=== PATIENT | male | born 1960 | race African-American/Black ===

== ENCOUNTER → 2020-06-03 | Outpatient (CLI) | payer BC, OTHER ==
[2014-12-21 15:20] VITALS: BP 149/99
[~2020-06-03] MED LIST: AMLO10TA4 PO; BARIUM SULFATE 40% (APPLE) 148 GM PWD. PO ONE; DOXA2TAB2 PO; Metoprolol Tartrate PO; POTA20TA4 PO; RANI150T2 PO; TAMS0.4C2 PO
--- NOTE | 2020-06-03 18:11 | RAD ---
EXAMINATION: DG VIDEO SWALLOW STUDY 06/03/2020 10:05 AM HISTORY: Aspiration, voice changes COMPARISON: None TECHNIQUE: The patient was observed swallowing various consistencies of barium under intermittent flu oroscopy. FINDINGS: There was manuel silent aspiration with thin and thick nectar, honey thick liquids, and puree consiste ncies. The patient has impaired laryngopharyngeal excursion, poor epiglottic inversion, and pooling o f residuals. Aspiration residuals is also seen. Total fluoroscopic time:4.5 minute. IMPRESSION: Manuel silent aspiration with all consistencies, and impaired swallowing mechanism. See th e speech pathologist's report for details. Electronically signed by: Cristy Pacheco MD (06/03/2020 6:09 PM) [id number]
== END ==
LOC: RAD 11:46
PROVIDERS: ATTEND Physician Assistant
DX: R13.19 Other dysphagia (principal)
CPT/HCPCS: 74230; 92611-GN

== ENCOUNTER → 2020-06-14 | Outpatient (CLI) | payer BC ==
[2014-12-21 15:20] VITALS: BP 149/99
[~2020-06-14] MED LIST changes: -BARIUM SULFATE 40% (APPLE) 148 GM PWD. PO ONE
--- NOTE | 2020-06-14 09:01 | KCIC ---
EXAM: Brain MRI without contrast. HISTORY: Memory loss. Weakness. TECHNIQUE: Multiplanar, multisequence magnetic resonance imaging of the brain was performed without c ontrast. COMPARISON: None. FINDINGS: There is no restricted diffusion to suggest acute or subacute infarction. There is no susce ptibility effect to suggest hemorrhage. There is no mass effect or midline shift. There is no hydroce phalus. There are scattered focal areas of T2/FLAIR hyperintensity within the cerebral white matter, primaril y in a posterior periventricular distribution. The orbits are unremarkable. The paranasal sinuses are unremarkable. There is minimal left mastoid fl uid. There are normal flow voids within the cerebral vessels. There is no suspicious calvarial lesion . IMPRESSION: 1. Multiple nonspecific scattered areas of signal change within the cerebral white matter. This most commonly due to chronic small vessel disease. However, this is advanced for patient age. The possibil ity of superimposed signal changes due to chronic demyelination is not completely excluded. 2. No acute intracranial finding. Electronically signed by: Nola Gallardo MD (06/14/2020 8:59 AM) [id number]
== END ==
LOC: KCIC MRI 07:54
PROVIDERS: ATTEND Psychiatry & Neurology Neurology with Special Qualifications in Child Neurology
DX: R13.19 Other dysphagia (principal); R41.3 Other amnesia; R53.1 Weakness
CPT/HCPCS: 70551